=== PATIENT | male | born 1985 | race Caucasian/White ===

== ENCOUNTER → 2018-06-21 10:17 | Outpatient (CLI) | payer OTHER, SELFPAY ==
--- NOTE | 2018-06-21 | DI.RAD.S_ITS ---
PROCEDURE: XR CHEST 2V INDICATIONS: cough chest pressure TECHNIQUE: 2 views of the chest were acquired. COMPARISON: [facility], , CHEST 2 VIEW, 11/11/2015, 11:49. FINDINGS: Surgical changes and devices: None. Lungs and pleura: Lungs are clear. No pleural effusions or pneumothorax. Azygos lobe fissure is again noted. Mediastinum: Mediastinal contours are normal. Heart size is normal. Bones and chest wall: No suspicious bony abnormalities. Soft tissues appear unremarkable. IMPRESSION: Stable radiographic evaluation of the chest without acute cardiopulmonary abnormalities. Dictated by: Nikolay Marin M.D. on 06/21/2018 at 12:00 Approved by: Nikolay Marin M.D. on 06/21/2018 at 12:01
== END ==
PROVIDERS: PCP Naturopath; Visit Provider Naturopath
DX: Z00.00 Encounter for general adult medical examination without abnormal findings (principal); R05 Cough; R07.89 Other chest pain
CPT/HCPCS: 71046

== ENCOUNTER 2018-12-01 15:01 | Emergency (ER) | payer OTHER, SELFPAY ==
[2018-12-01 15:09] VITALS: BP 145/97; PULSE 91; RESP 22; TEMP 36.5; O2SAT 100; BMI 32.3
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
[2018-12-01 15:14] VITALS: BP 145/97; PULSE 91; RESP 22; TEMP 36.5; O2SAT 100
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
[2018-12-01 15:55] VITALS: BP 126/73; PULSE 69; RESP 17; O2SAT 97
[2018-12-01 16:00] VITALS: BP 129/67; PULSE 76; RESP 15; O2SAT 96
--- NOTE | 2018-12-01 16:24 | DI.CT.S_ITS ---
PROCEDURE: CT LE LT W CON INDICATIONS: fracture TECHNIQUE: Noncontrast 1-1.5 mm axial sections acquired from the mid-patella to the proximal tibia, with coronal and sagittal reformats. COMPARISON: None. FINDINGS: Image quality: Excellent. Bones: There is a split, depressed fracture of the lateral tibial plateau which extends through the proximal tibial metaphysis. No fracture of the medial tibial plateau. Visualized portions of the femur and the patella are intact. Soft tissues: There is a large lipohemarthrosis within the knee joint. IMPRESSION: 1. Split, depressed fracture of the lateral tibial plateau. 2. Knee lipohemarthrosis. Dictated by: Ama German M.D. on 12/01/2018 at 16:04 Approved by: Ama German M.D. on 12/01/2018 at 16:09
[2018-12-01 16:30] VITALS: BP 144/80
[2018-12-01 16:58] VITALS: PULSE 78; RESP 17; O2SAT 98
== END 2018-12-01 17:14 | disposition home or self-care (01) ==
PROVIDERS: Emergency Provider Emergency Medicine; PCP Naturopath
DX: S82.142A Displaced bicondylar fracture of left tibia, initial encounter for closed fracture (principal); S43.402A Unspecified sprain of left shoulder joint, initial encounter; S43.401A Unspecified sprain of right shoulder joint, initial encounter; V18.0XXA Pedal cycle driver injured in noncollision transport accident in nontraffic accident, initial encounter; Y93.55 Activity, bike riding; Y92.838 Other recreation area as the place of occurrence of the external cause
CPT/HCPCS: 73030; 73562; 73590; 73700; 99283; 99284

== ENCOUNTER → 2021-12-29 10:52 | Outpatient (CLI) | payer OTHER, SELFPAY ==
--- NOTE | 2021-12-29 | DI.RAD.S_ITS ---
PROCEDURE: XR THORACIC SPINE 3V INDICATIONS: Pain in thoracic spine/Low back pain, unspecified TECHNIQUE: 3 views of the thoracic spine were acquired. COMPARISON: None. FINDINGS: Bones: No fractures or dislocations. No suspicious bony lesions. 12 pairs of ribs are noted, and appear intact where visualized. Mild multilevel disc height loss, minimal endplate spurring. Soft tissues: No paravertebral stripe thickening. Azygous lobe variant anatomy. IMPRESSION: 1. No acute thoracic spine fracture visualized radiographically. 2. Mild degenerative changes of the thoracic spine. Dictated by: Vinny Fernandez M.D. on 12/30/2021 at 13:11 Approved by: Vinny Fernandez M.D. on 12/30/2021 at 13:15
--- NOTE | 2021-12-29 | DI.RAD.S_ITS ---
PROCEDURE: XR CERVICAL SPINE 2V OR 3V INDICATIONS: Pain in thoracic spine/Low back pain, unspecified TECHNIQUE: 3 view(s) of the cervical spine were acquired. COMPARISON: None. FINDINGS: Bones: No fractures or dislocations to the C6 level. The lateral masses of C1 appear intact on the odontoid view. No suspicious bony lesions. Disc heights appear maintained. Minimal facet degenerative changes C3-C4, C6-C7. Soft tissues: No prevertebral soft tissue swelling. IMPRESSION: Minimal degenerative changes of the cervical spine. Dictated by: Vinny Fernandez M.D. on 12/30/2021 at 12:37 Approved by: Vinny Fernandez M.D. on 12/30/2021 at 12:40
--- NOTE | 2021-12-29 | DI.RAD.S_ITS ---
PROCEDURE: XR LUMBAR SPINE 2-3V INDICATIONS: Pain in thoracic spine/Low back pain, unspecified TECHNIQUE: 3 views of the lumbar spine were acquired. COMPARISON: None. FINDINGS: Bones: 5 [id number] vertebrae are present. No significant curvature of the lumbar spine. 2 millimeters retrolisthesis L5 on S1. Mild multilevel disc height loss and endplate spurring. No vertebral body compression fractures. No suspicious bony lesions. Soft tissues: Overlying bowel gas pattern is normal. No suspicious soft tissue calcifications. IMPRESSION: 1. No acute lumbar spine fracture visualized radiographically. 2. Mild degenerative changes of the lumbar spine. Dictated by: Vinny Fernandez M.D. on 12/30/2021 at 13:15 Approved by: Vinny Fernandez M.D. on 12/30/2021 at 13:19
== END ==
PROVIDERS: PCP Naturopath; Referring Provider Chiropractor; Visit Provider Chiropractor
DX: M47.814 Spondylosis without myelopathy or radiculopathy, thoracic region (principal); M47.816 Spondylosis without myelopathy or radiculopathy, lumbar region; M99.11 Subluxation complex (vertebral) of cervical region; M99.02 Segmental and somatic dysfunction of thoracic region; M99.03 Segmental and somatic dysfunction of lumbar region; M99.04 Segmental and somatic dysfunction of sacral region; M99.05 Segmental and somatic dysfunction of pelvic region; M54.2 Cervicalgia; M54.6 Pain in thoracic spine; M54.50 Low back pain, unspecified
CPT/HCPCS: 72040; 72072; 72100

== ENCOUNTER → 2022-01-24 17:06 | Outpatient (CLI) | payer OTHER, SELFPAY ==
--- NOTE | 2022-01-24 | DI.MRI.S_ITS ---
PROCEDURE: MR LUMBAR SPINE WO CON INDICATIONS: LUMBAR RADICULOPATHY/LUMBAR SPINE PAIN TECHNIQUE: Noncontrast sagittal T1 spin echo and T2 fast echo, sagittal STIR, and T2 fast spin echo through the lumbar spine. In cases with scoliosis, additional coronal T2 fast spin echo may be performed. COMPARISON: None. FINDINGS: Image quality: Excellent. Alignment and Curvature: There is normal bony alignment. Bone Marrow: Marrow is of normal overall signal. No acute vertebral body compression fractures. Spinal Cord: Conus medullaris terminates at the L1 level. Visualized cord demonstrates normal signal and size. Paraspinous Soft Tissues: No paravertebral masses. T12-L1: Moderate disc desiccation and height loss. Mild facet ligamentum flavum hypertrophy. No canal stenosis. No foraminal stenosis. L1-L2: Moderate disc desiccation and height loss. Broad-based disc bulge. Mild facet and ligamentum flavum hypertrophy. No canal stenosis. Mild bilateral foraminal stenosis. L2-L3: Mild disc desiccation and height loss. Broad-based disc bulge. Moderate facet ligamentum flavum hypertrophy. Mild canal stenosis. Moderate bilateral foraminal stenosis. L3-L4: Disc height is preserved. Mild facet ligamentum flavum hypertrophy. No canal stenosis. Moderate bilateral foraminal stenosis. L4-L5: Disc height is preserved. Broad-based disc bulge. Moderate facet ligamentum flavum hypertrophy. No canal stenosis. Mild bilateral foraminal narrowing. L5-S1: Mild disc desiccation and height loss. Posterior focal high-intensity zone. Mild facet sclerosis. No canal stenosis. Moderate bilateral foraminal narrowing. IMPRESSION: 1. Moderate bilateral foraminal narrowing at L2-3, L3-4, and L5-S1. 2. 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 3. No significant canal stenosis of the lumbar spine. Dictated by: Ama German M.D. on 01/25/2022 at 8:28 Approved by: Ama German M.D. on 01/25/2022 at 8:33
== END ==
PROVIDERS: PCP Naturopath; Referring Provider Chiropractor; Visit Provider Chiropractor
DX: M51.17 Intervertebral disc disorders with radiculopathy, lumbosacral region (principal); M48.061 Spinal stenosis, lumbar region without neurogenic claudication; M48.07 Spinal stenosis, lumbosacral region; M99.13 Subluxation complex (vertebral) of lumbar region; M54.51 Vertebrogenic low back pain
CPT/HCPCS: 72148

== ENCOUNTER → 2023-07-02 09:36 | Outpatient (CLI) | payer OTHER, SELFPAY ==
--- NOTE | 2023-07-02 09:39 | DI.RAD.S_ITS ---
PROCEDURE: XR KUB INDICATIONS: low back pain and maloderous urine TECHNIQUE: One view of the abdomen acquired. COMPARISON: None. FINDINGS: Surgical changes and devices: None. Bowel: Bowel gas pattern is normal. Soft tissues: No suspicious abdominal calcifications. Visualized solid organ contours appear normal in size. Bones: No suspicious bony lesions. IMPRESSION: No acute abnormality. Dictated by: Alex Deal M.D. on 07/02/2023 at 11:34 Approved by: Alex Deal M.D. on 07/02/2023 at 11:34
[2023-07-02 11:04] LABS: BUN Creatinine Ratio 23.3 (6-22); Blood Urea Nitrogen 21 mg/dL (9-20); Calcium 9.8 mg/dL (8.4-10.2); Carbon Dioxide 26 mmol/L (22-32); Chloride 102 mmol/L (98-107); Estimated Glomerular Filt Rate > 60 mL/min (>60); Glucose 89 mg/dL (70-100); HEMOLYSIS < 15 (0-50); Potassium 4.4 mmol/L (3.4-5.1); Sodium 138 mmol/L (137-145)
[2023-07-02 11:06] LABS: Add Manual Diff / Slide Review NO; Basophils Absolute Auto 0 /uL (0-100); Basophils Percent Auto 0.7 % (0-2); Eosinophils Absolute Auto 100 /uL (0-450); Eosinophils Percent Auto 1.6 % (2-4); Hemoglobin 16.5 g/dL (13.5-17.5); Lymphocytes Absolute Auto 1800 /uL (1100-4500); Lymphocytes Percent Auto 29.2 % (25-40); Mean Corpuscular HGB Conc 34.3 % (30-36); Mean Corpuscular Hemoglobin 30.5 PG (26-34); Monocytes Absolute Auto 500 /uL (0-900); Monocytes Percent Auto 7.7 % (3-14); Neutrophils Absolute Auto 3700 /uL (1500-7000); Neutrophils Percent Auto 60.8 % (50-75); Platelet Count 219 X10^3/uL (150-400); Red Cell Distribution Width 12.7 % (11.6-14.8); White Blood Cell Count 6.2 X10^3/uL (4.5-11.0)
== END ==
PROVIDERS: PCP Naturopath; Referring Provider Urology; Visit Provider Physician Assistant
DX: R82.90 Unspecified abnormal findings in urine (principal)
CPT/HCPCS: 36415; 74018; 80048; 85025